=== PATIENT | female | born 1970 | race Caucasian/White ===

== ENCOUNTER 2016-07-05 23:01 | Emergency (ER) | payer BC, OTHER ==
--- NOTE | 2016-07-05 23:32 | Emergency Department Record ---
History of Present Illness - General Chief Complaint: Headache Migraine Stated Complaint: COLIN Time Seen by Provider: 07/05/16 23:27 Source: Patient Mode of Arrival: Ambulatory Limitations: No limitations - History of Present Illness Initial Comments: 46 yo female presents to ED with a 5 hour history of headache, photophobia, and nausea symptoms similar to previous migraine headaches. Patient reports taking Imitrex x 2 without improvement, denies fevers, chills, or neck pain symptoms. MD Complaint: Headache Onset/Timin -: Hour(s) Onset Description: Gradual Location: Diffuse Severity scale (1-10): 9 Quality: Throbbing, Similar to previous headaches Consistency: Constant Improves With: Nothing Worsens With: Light, Noise Associated Symptoms: Nausea Treatments Prior to Arrival: Migraine medication, Prescription analgesic - Related Data Home Medications Medication Instructions Recorded Confirmed Last Taken Alprazolam [Xanax] 0.25 mg PO Q8H 03/01/15 07/05/16 09/07/15 Butalb/Acetaminophen/Caffeine 1 tab PO ASDIR PRN 03/01/15 07/05/16 09/07/15 [Hljnpy-Nqkadeyv-Djio 50-325-40] Citalopram Hydrobromide [Celexa] 40 mg PO DAILY 03/01/15 07/05/16 09/07/15 Levothyroxine Sodium [Synthroid] 100 mcg PO DAILY 03/01/15 07/05/16 09/07/15 Sumatriptan Succinate [Imitrex] 100 mg PO ASDIR PRN 03/01/15 07/05/16 09/07/15 Topiramate [Topamax] 50 mg PO BID 03/01/15 07/05/16 09/07/15 Dextroamphetamine/Amphetamine 30 mg PO BID 02/15/16 07/05/16 Unknown [Adderall] Gabapentin [Gabapentin] 300 mg PO TID 07/05/16 07/05/16 Unknown Methocarbamol [Methocarbamol] 500 mg PO DAILY 07/05/16 07/05/16 Unknown Montelukast Sodium [Singulair] 10 mg PO DAILY 07/05/16 07/05/16 Unknown Zolpidem Tartrate [Zolpidem 12.5 mg PO DAILY 07/05/16 07/05/16 Unknown Tartrate ER] Allergies Allergy/AdvReac Type Severity Reaction Status Date / Time No Known Drug Allergies Allergy Verified 07/05/16 23:13 Travel Screening - Travel/Exposure Within Last 30 Days Have you traveled within the last 30 days?: No - Travel/Exposure Within Last Year Have you traveled outside the [place] in the last year?: No - Additonal Travel Details Have you been exposed to anyone with a communicable illness?: No - Travel Symptoms Symptom Screening: None Review of Systems Constitutional: Denies: Chills, Fever, Malaise, Night sweats Eyes: Denies: Eye discharge, Eye pain, Photophobia ENT: Denies: Congestion, Dental pain Respiratory: Denies: Cough, Dyspnea Cardiovascular: Denies: Chest pain, Dyspnea on exertion Endocrine: Denies: Fatigue, Heat or cold intolerance Gastrointestinal: Reports: Nausea. Denies: Abdominal pain, Vomiting Genitourinary: Denies: Incontinence, Retention Musculoskeletal: Denies: Arthralgia, Back pain, Gout, Joint swelling Skin: Denies: Bruising, Change in color Neurological: Reports: Headache. Denies: Abnormal gait, Confusion, Seizure Psychiatric: Denies: Anxiety Hematological/Lymphatic: Denies: Anemia, Blood Clots Past Medical History - SOCIAL HISTORY Smoking Status: Never smoker Alcohol Use: Rare Drug Use: None - RESPIRATORY Hx Respiratory Disorders: No - CARDIOVASCULAR Hx Cardio Disorders: No - NEURO Hx Neuro Disorders: Yes Hx Headaches: Yes - GI Hx GI Disorders: No - Hx Genitourinary Disorders: No - ENDOCRINE Hx Endocrine Disorders: Yes Hx Thyroid Disease: Yes (hypo) - MUSCULOSKELETAL Hx Musculoskeletal Disorders: No - PSYCH Hx Psych Problems: Yes Hx Depression: Yes - HEMATOLOGY/ONCOLOGY Hx Hematology/Oncology Disorders: No Family Medical History Any Significant Family History?: No Hx Dementia: Grandparents Physical Exam - General General Appearance: Alert, Oriented x3, Cooperative, Moderate distress Limitations: No limitations - Head Head exam: Atraumatic, Normocephalic, Normal inspection Head exam detail: negative: Abrasion, Contusion, Woodard's sign, General tenderness, Hematoma, Laceration - Eye Eye exam: Normal appearance. negative: Conjunctival injection, Periorbital swelling, Periorbital tenderness, Scleral icterus - ENT Ear exam: negative: Auricular hematoma, Auricular trauma Nasal Exam: negative: Active bleeding, Discharge, Dried blood, Foreign body Mouth exam: negative: Drooling, Laceration, Muffled voice, Tongue elevation - Neck Neck exam: Normal inspection. negative: Meningismus, Tenderness - Respiratory Respiratory exam: Normal lung sounds bilaterally. negative: Rales, Respiratory distress, Rhonchi, Stridor - Cardiovascular Cardiovascular Exam: Regular rate, Normal rhythm, Normal heart sounds - GI/Abdominal GI/Abdominal exam: Soft. negative: Rebound, Rigid, Tenderness - Rectal Rectal exam: Deferred - exam: Deferred - Extremities Extremities exam: Normal inspection. negative: Calf tenderness, Pedal edema, Tenderness - Back Back exam: Denies: CVA tenderness (R), CVA tenderness (L) - Neurological Neurological exam: Alert, Normal gait, Oriented X3 - Psychiatric Psychiatric exam: Normal affect, Normal mood - Skin Skin exam: Normal color. negative: Abrasion Type of lesion: negative: abrasion Course Vital Signs 07/05/16 23:17 Temperature 97 F L Pulse Rate 70 Respiratory 18 Rate Blood Pressure 173/108 Pulse Ox 98 - Reevaluation(s) Reevaluation #1: 07/06/16 00:28 Patient reassessed and reports that she is feeling much improved, reports headache symptoms are down to 5/10 at this time. Will allow the remainder of the patient's IVFs to infuse, and the patient appears stable for discharge at this time. Disposition Disposition: Discharge Clinical Impression: Migraine Qualifiers: Migraine type: unspecified Status migrainosus presence: with status migrainosus Intractability: not intractable Qualified Code(s): G43.901 - Migraine, unspecified, not intractable, with status migrainosus Disposition: Home, Self-Care Condition: (2) Stable Instructions: Migraine Headache (ED) Additional Instructions: Return to ED if your symptoms worsen or if you have any concerns. Follow-up with your family doctor in 3-5 days as directed. Forms: Patient Portal Access Time of Disposition: 00:30
[2016-07-05] MEDS: DIPHENHYDRAMINE HCL IV 50 MG/ML VIAL IVP ONE (23:40)
[2016-07-05] MEDS: 0.9 % SODIUM CHLORIDE 1000ML 1,000 ML IV SCH (23:40)
[2016-07-05] MEDS: METOCLOPRAMIDE HCL 10 MG/2 ML VIAL IVP ONE (23:41)
[2016-07-05] MEDS: KETOROLAC 30 MG/ML VIAL IVP ONE (23:41)
== END 2016-07-06 00:40 | disposition home or self-care (01) ==
LOC: ER 23:01
DX: G43.901 Migraine, unspecified, not intractable, with status migrainosus (principal); R11.0 Nausea; H53.149 Visual discomfort, unspecified
CPT/HCPCS: 99284 ×2; 96374; 96375; 96361; J1885; J1200; J2765; J7030